=== PATIENT | female | born 1990 | race Caucasian/White ===

== ENCOUNTER 2017-06-09 12:02 | Emergency (ER) | payer OTHER ==
[2017-06-09 12:15] VITALS: BP 109/75; PULSE 106; TEMP 97.7; BMI 23.8
--- NOTE | 2017-06-09 12:47 | PDOC ---
History of Present Illness - General Chief Complaint: RX Refill Stated Complaint: RX REFILL Time Seen by Provider: 06/09/17 12:23 History Source: Patient Exam Limitations: No Limitations - History of Present Illness Initial Comments: 06/09/17 12:42 This is a 26yo woman with PMHx tricuspid valve removal 05/13 s/p vegetated valve who presents to have her metoprolol, lasix and potassium refilled. She recently moved to [place] from [place] where her procedure was done. At this time, she is in the process of obtaining medicaid in [facility]. She has appointment with angiographer on 06/09 to resume care here. She denies fevers, chest pain, SOB, nausea, vomiting, swelling, bloating or decrease in exercise tolerance. 06/09/17 12:50 06/09/17 12:51 Timing/Duration: other Past History - Travel Traveled outside of the country in the last 30 days: No Close contact w/someone who was outside of country & ill: No - Past Medical History Allergies/Adverse Reactions: Allergies Allergy/AdvReac Type Severity Reaction Status Date / Time No Known Allergies Allergy Verified 06/09/17 12:05 Home Medications: Ambulatory Orders Furosemide [Lasix -] 40 mg PO DAILY #30 tab 06/09/17 Metoprolol Tartrate 25 mg PO BID #60 tab 06/09/17 Pot Chloride/Pot Bicarb/Cit AC [Potassium Cl 25 Meq Tab Eff] 25 meq PO DAILY # 30 tab 06/09/17 Anemia: No Asthma: No Cancer: No Cardiac Disorders: Yes (vegetative tricuspid valve) Hx Myocardial Infarction: No CVA: No COPD: No CHF: Yes DVT: No Dementia: No Diabetes: No Dialysis: No GI Disorders: No Disorders: No HTN: No Hypercholesterolemia: No HIV: No Kidney Stones: No Liver Disease: No Psychiatric Problems: No Suicide Attempt (Hx): No Seizures: No Thyroid Disease: No Lung CA: No - Surgical History Abdominal Surgery: No Appendectomy: No Cardiac Surgery: Yes (tricuspid valve removal) Cholecystectomy: No Gastric Stapling: No GI Surgery: No Lung Surgery: No Neurologic Surgery: No Orthopedic Surgery: No - Psycho/Social/Smoking Cessation Hx Suicidal Ideation: No Smoking History: Current every day smoker Years of Tobacco Use: 11 Have you smoked in the past 12 months: Yes Number of Cigarettes Smoked Daily: 3 Information on smoking cessation initiated: No Drug/Substance Use Hx: Yes Substance Use Type: Heroin (IV) Hx Substance Use Treatment: Yes Patient Lives Alone: No Lives with/in: parents Review of Systems - Review of Systems Able to Perform ROS?: Yes Is the patient limited Croatian proficient: No Constitutional: No: Symptoms Reported HEENTM: No: Symptoms Reported Respiratory: No: Symptoms reported Cardiac (ROS): No: Symptoms Reported ABD/GI: No: Symptoms Reported : No: Symptoms Reported Musculoskeletal: No: Symptoms Reported Integumentary: No: Symptoms Reported Neurological: No: Symptoms reported Endocrine: No: Symptoms Reported Hematologic/Lymphatic: No: Symptoms Reported All Other Systems: Reviewed and Negative *Physical Exam - Vital Signs Last Vital Signs Temp Pulse Resp BP Pulse Ox 97.7 F 106 H 18 109/75 100 06/09/17 12:06 06/09/17 12:06 06/09/17 12:06 06/09/17 12:06/09/17 12:06 - Physical Exam General Appearance: Yes: Appropriately Dressed. No: Apparent Distress HEENT: positive: SANDRA, Normal ENT Inspection, Normal Voice, Pharynx Normal Neck: positive: Trachea midline, Supple Respiratory/Chest: positive: Lungs Clear, Normal Breath Sounds. negative: Respiratory Distress Cardiovascular: positive: Regular Rhythm, Regular Rate, S1, S2. negative: Edema , Murmur Gastrointestinal/Abdominal: positive: Normal Bowel Sounds, Soft. negative: Tender, Organomegaly Musculoskeletal: positive: Normal Inspection. negative: CVA Tenderness Extremity: positive: Normal Capillary Refill, Normal Inspection, Normal Range of Motion Integumentary: positive: Normal Color, Dry, Warm Neurologic: positive: mother tester II-XII NML intact, Fully Oriented, Alert, Motor Strength 5/5 Medical Decision Making - Medical Decision Making 06/09/17 12:50 This is a 26yo woman with PMHx tricuspid valve removal 05/13 s/p vegetated valve who presents to have her metoprolol, lasix and potassium refilled. She recently moved to [place] from [place] where her procedure was done. At this time, she is in the process of obtaining medicaid in [facility]. She has appointment with angiographer on 06/09 to resume care here. She denies fevers, chest pain, SOB, nausea, vomiting, swelling, bloating or decrease in exercise tolerance. Counseling given regarding s/s heart failure, smoking cessation, and drug use. Pt agrees to see PMD during the first week of June when insurance is active. *DC/Admit/Observation/Transfer Diagnosis at time of Disposition: Prescription for medication not provided at discharge - Discharge Dispostion Disposition: HOME Condition at time of disposition: Stable Admit: No - Prescriptions Prescriptions: Furosemide [Lasix -] 40 mg PO DAILY #30 tab Metoprolol Tartrate 25 mg PO BID #60 tab Pot Chloride/Pot Bicarb/Cit AC [Potassium Cl 25 Meq Tab Eff] 25 meq PO DAILY # 30 tab - Referrals Referrals: Juan Carlos Marrero MD [Staff Physician] - - Patient Instructions Printed Discharge Instructions: How to Keep Track of Your Weight When You Have Heart Failure, Smoking Cessation
== END 2017-06-09 13:03 | disposition home or self-care (01) ==
LOC: JERFT 12:02
DX: Z76.0 Encounter for issue of repeat prescription (principal); I33.0 Acute and subacute infective endocarditis
CPT/HCPCS: 99281-25

== ENCOUNTER 2017-07-17 09:38 | Emergency (ER) | payer OTHER ==
[2017-07-17 09:47] VITALS: TEMP 97.8; BMI 23.8
--- NOTE | 2017-07-17 10:37 | PDOC ---
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 She denies any pain around her surgical scars and signs of infection. She reports some increasing SOB with exertion and intermittent chest pain that her commercial collections specialist Dr. Fields is aware of. She is scheduled for tricuspid valve placement in 3 weeks at [facility]. She denies using heroine since February 2017. She states that her heart rate is normally a little high in the 110s. 07/17/17 10:50 07/17/17 10:56 07/17/17 11:28 Past History - Past Medical History Allergies/Adverse Reactions: Allergies Allergy/AdvReac Type Severity Reaction Status Date / Time No Known Allergies Allergy Verified 07/17/17 09:39 Home Medications: Ambulatory Orders Furosemide [Lasix -] 40 mg PO DAILY #30 tab 06/09/17 Metoprolol Tartrate 25 mg PO BID #60 tab 06/09/17 Pot Chloride/Pot Bicarb/Cit AC [Potassium Cl 25 Meq Tab Eff] 20 meq PO DAILY Anemia: No Asthma: No Cancer: No Cardiac Disorders: Yes (vegetative tricuspid valve) CVA: No COPD: No CHF: Yes DVT: No Dementia: No Diabetes: No Dialysis: No GI Disorders: No Disorders: No HTN: No Hypercholesterolemia: No HIV: No Kidney Stones: No Liver Disease: No Psychiatric Problems: No Suicide Attempt (Hx): No Seizures: No Thyroid Disease: No Lung CA: No Other medical history: hx of iv drug abuse Comment:: 07/17/17 10:52 PMH: none other than stated above PSH: none other than stated above Meds: metoprolol, furosemide, potassium chloride Allergies: NKDA FAm Hx: DM Social Hx: denies toxic habits since February - Surgical History Abdominal Surgery: No Appendectomy: No Cardiac Surgery: Yes (tricuspid valve removal) Cholecystectomy: No Gastric Stapling: No GI Surgery: No Lung Surgery: No Neurologic Surgery: No Orthopedic Surgery: No - Psycho/Social/Smoking Cessation Hx Anxiety: No Suicidal Ideation: No Smoking History: Former smoker Years of Tobacco Use: 11 Have you smoked in the past 12 months: Yes Number of Cigarettes Smoked Daily: 3 Information on smoking cessation initiated: No Hx Alcohol Use: No Drug/Substance Use Hx: Yes (hx of iv drug abuse) Substance Use Type: Heroin Hx Substance Use Treatment: Yes Review of Systems - Review of Systems Comments:: 07/17/17 10:53 GENERAL: No fever, chills, night sweats, or weakness. HEAD, EYES, EARS, NOSE AND THROAT: No change in vision, ear pain, or sore throat CARDIOVASCULAR: + chest pain, no palpitations RESPIRATORY: No cough, wheezing, or hemoptysis. GASTROINTESTINAL: No nausea, vomiting, diarrhea, constipation, or blood in the stool. GENITOURINARY: No dysuria, frequency, or urgency MUSCULOSKELETAL: No joint or muscle swelling or pain. SKIN: No rashes or pruritis ENDOCRINE: No increased thirst. No abnormal weight change NEUROLOGIC: + headache, no dizziness, loss of consciousness, or change in strength/sensation. 07/17/17 11:07 *Physical Exam - Vital Signs Last Vital Signs Temp Pulse Resp BP Pulse Ox 97.8 F 121 H 18 111/76 100 07/17/17 09:42 07/17/17 09:42 07/17/17 09:42 07/17/17 09:42 07/17/17 09:42 - Physical Exam Comments: 07/17/17 10:54 GENERAL: Awake, alert, and fully oriented, in no acute distress HEAD: normocephalic, atraumatic HEENT: PERRLA, EOMI, sclera anicteric, conjunctiva clear, hearing grossly normal , nares patent, oropharynx clear without exudate, moist mucosa NECK: Normal ROM, supple, no lymphadenopathy, JVD, or masses HEART: tachycardic, Regular rhythm, normal S1 and S2, no murmurs, rubs or gallops, peripheral pulses normal and equal bilaterally. LUNGS: CTAB, no wheezing, no rales ABDOMEN: 3 surgical scars present below right breast, no erythema, no induration , not warm to touch, healing well. Soft, nontender, nondistended, normoactive bowel sounds. No guarding, no rebound. No masses EXTREMITIES: Normal range of motion, no edema. SKIN: Warm, dry, no rashes. NEUROLOGICAL: Cranial nerves II through XII grossly intact. 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 Exam shows no signs of infection around surgical site. EKG: left atrial enlargement, normal sinus rhythm Spoke with Dr. Jony Fields (pt's commercial collections specialist), informed him of suture removal and tachycardia with EKG findings. He recommended that as long as there is no evidence of withdrawal, she can be discharged home with f/u with him this week 07/17/17 10:57 07/17/17 11:07 07/17/17 11:28 *DC/Admit/Observation/Transfer Diagnosis at time of Disposition: Extruding suture Qualifiers: Encounter type: initial encounter Qualified Code(s): T81.30XA - Disruption of wound, unspecified, initial encounter - Discharge Dispostion Admit: No - Patient Instructions Additional Instructions: Your surgical scars appear to be well healing without signs of infection. Your heart rate is elevated, and your EKG shows normal sinus rhythm with signs of left atrial enlargement. Please follow up with Dr. Fields in one week. If you develop any worsening or concerning symptoms of shortness of breath or chest pain, fevers or chills, return to the ED. - Attestations Physician Attestion: 07/17/17 11:34 I, Dr. Hussain Kim, attest that this document has been prepared under my direction and personally reviewed by me in its entirety. I further attest, that it accurately reflects all work, treatment, procedures and medical decision -making performed by me.
--- NOTE | 2017-07-17 10:56 | PDOC ---
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 Saw blue material in her scar yesterday which she pulled and removed a 8cm piece of suture. Scheduled to get a new TC valve at [facility] in 3 weeks. Feels well otherwise, denies current CP, SOB, N/V/ D, abd pain, fevers, chills. Last used heroine 02/2017. Pt tachycardic to 120 on arrival, 110 on my evaluation, reports her baseline heart rate is usually around 110. - Physicial Exam PE: 07/17/17 10:56 GENERAL: Awake, alert, and fully oriented, in no acute distress. Well appearing , pleasant HEAD: No signs of trauma EYES: PERRLA, EOMI, sclera anicteric, conjunctiva clear ENT: Auricles normal inspection, hearing grossly normal, nares patent, oropharynx clear without exudates. Moist mucosa NECK: Normal ROM, supple, no lymphadenopathy, JVD, or masses LUNGS: Breath sounds equal, clear to auscultation bilaterally. No wheezes, and no crackles HEART: tachycardic to 110, regular, normal S1 and S2, no murmurs, rubs or gallops ABDOMEN: Soft, nontender, normoactive bowel sounds. No guarding, no rebound. No masses EXTREMITIES: Normal range of motion, no edema. No clubbing or cyanosis. No cords, erythema, or tenderness NEUROLOGICAL: Normal speech, cranial nerves intact, negative pronator drift, 5/ 5 strength in all 4 extremities, normal sensation to light touch in all 4 extremities, normal cerebellar exam, normal gait, normal reflexes and tone SKIN: Warm, Dry, normal turgor, no rashes or lesions noted. Lateral to R breast , 3 scars, 1 superior scar 5cm and 2 inferior 1 cm scars all clean/dry and intact with no suture material. - Medical Decision Making 07/17/17 10:57 26-year-old female history of tricuspid valve removal in March 2017 presents after removing a long piece of suture from her scar. Patient is currently asymptomatic. Exam with scars that are all clean, dry, and intact. Patient also tachycardic to 120 in triage and 110 on my evaluation but reports this is her baseline. She does not have any symptoms such as fevers, chills, pain, chest pain, shortness of breath that will cause her to be tachycardic. Will call Dr. Fields to discuss the case and also confirm that her heart rate is typically in this range. -call Dr. Fields -dispo 07/17/17 11:33 Dr. Fields was called, said that with regards to suture coming out, as long as scars do not appear infected that we do not need to do any further work up. With regards to her tachycardia, she does tend to run a bit tachycardic to low 100s and is on metoprolol. He states that so long as she is in sinus, and regular, she can be discharged to follow up in clinic with him. Twelve-lead EKG was performed in triage and reviewed by me. Sinus tachycardia, rate 114 normal axis and intervals, no ST changes I discussed the physical exam findings, ancillary test results and final diagnoses with the patient. HR down to 108 upon DC. I answered all of the patient's questions. The patient was satisfied with the care received and felt comfortable with the discharge plan and treatment plan. The patient will call their primary care physician within 24 hours to arrange follow-up and will return to the Emergency Department with any new, persistent or worsening symptoms.
[2017-07-17 11:44] VITALS: BP 108/75; PULSE 108
--- NOTE | 2017-07-20 16:19 | EKG ---
Test Reason : Blood Pressure : / mmHG Vent. Rate : 114 BPM Atrial Rate : 114 BPM P-R Int : 136 ms QRS Dur : 086 ms QT Int : 354 ms P-R-T Axes : 058 013 039 degrees QTc Int : 487 ms SINUS TACHYCARDIA LEFT ATRIAL ENLARGEMENT CANNOT RULE OUT INFERIOR INFARCT , AGE UNDETERMINED ABNORMAL ECG NO PREVIOUS ECGS AVAILABLE Confirmed by CLARA HUANG MD ([id number]) on 07/20/2017 4:18:51 PM Referred By: Confirmed By:CLARA HUANG MD
== END 2017-07-17 11:44 | disposition home or self-care (01) ==
LOC: JER 09:38
DX: T81.31XA Disruption of external operation (surgical) wound, not elsewhere classified, initial encounter (principal); I50.9 Heart failure, unspecified; I07.8 Other rheumatic tricuspid valve diseases; F11.10 Opioid abuse, uncomplicated
CPT/HCPCS: 93005; 93010; 99281-25

== ENCOUNTER 2017-11-29 16:57 | Emergency (ER) | payer OTHER ==
[2017-11-29 17:38] VITALS: BP 142/82; PULSE 113; TEMP 98.3; BMI 26.5
--- NOTE | 2017-11-29 17:39 | PDOC ---
Rapid Medical Evaluation Time Seen by Provider: 11/29/17 17:34 Medical Evaluation: Allergies Allergy/AdvReac Type Severity Reaction Status Date / Time No Known Allergies Allergy Verified 07/17/17 09:39 I have performed a brief in-person evaluation of this patient. The patient presents with a chief complaint of: dry cough x 2 weeks, left knee pain x 1 week Pertinent physical exam findings: persistent dry cough I have ordered the following: hcg The patient will proceed to the ED for further evaluation.
--- NOTE | 2017-11-29 18:11 | PDOC ---
History of Present Illness - General Chief Complaint: Cold Symptoms Stated Complaint: COUGH Time Seen by Provider: 11/29/17 17:34 - History of Present Illness Initial Comments: 11/29/17 18:06 CHIEF COMPLAINT: cough x 2 weeks, L knee pain HISTORY OF PRESENT ILLNESS: 27 yo F with hx of endocarditis, s/p aortic valve replacement (on Coumadin) and left knee arthroscopy, presents to fast track with dry cough x 2 weeks and left knee pain. Patient states "every once in a while I might sneeze a little or have a little runny nose, but most of the time it's just dry coughing." Patient denies any fever, chills, nausea, vomiting, diarrhea. PAST MEDICAL HISTORY: Denies past medical history FAMILY HISTORY: Denies SOCIAL HISTORY: Denies tobacco, alcohol, illicit drug use. SURGICAL HISTORY: Denies ALLERGIES: No known drug allergies REVIEW OF SYSTEMS General/Constitutional: Denies fever or chills. HEENT: Denies change in vision. Denies ear pain or discharge. Denies sore throat. Cardiovascular: Denies chest pain or shortness of breath. Respiratory: Dry cough x 1 week. Denies wheezing, or hemoptysis. Gastrointestinal: Denies nausea, vomiting, diarrhea or constipation. Denies rectal bleeding. Genitourinary: Denies dysuria, frequency, or change in urination. Musculoskeletal: L knee pain x 1 week, worse with cold weather and movement. Denies swelling, erythema, calf pain. Skin and breasts: Denies rash or easy bruising. PHYSICAL EXAM General Appearance: Well-appearing, appropriately dressed. No apparent distress. HEENT: EOMI, PERRLA. No conjunctival pallor. No photophobia, scleral icterus. Respiratory/Chest: Lungs CTAB. No shortness of breath, chest tenderness, respiratory distress, accessory muscle use. No crackles, rales, rhonchi, stridor , wheezing, dullness Cardiovascular: RRR. S1, S2. Gastrointestinal/Abdominal: Normal bowel sounds. Abdomen soft, non-distended. No tenderness or rebound tenderness. No organomegaly, pulsatile mass, guarding , hernia, hepatomegaly, splenomegaly. Musculoskeletal/Extremities: Normal inspection. FROM of all extremities, normal capillary refill. Pelvis Stable. No CVA tenderness. No tenderness to extremities, pedal edema, swelling, erythema or deformity. Integumentary: Appropriate color, dry, warm. No cyanosis, erythema, jaundice or rash Neurologic: shotgun shell assembly machine adjuster II-XII intact. Fully oriented, alert. Appropriate mood/affect. Motor strength 5/5. No appreciable EOM palsy, facial droop or sensory deficit. Past History - Past Medical History Allergies/Adverse Reactions: Allergies Allergy/AdvReac Type Severity Reaction Status Date / Time No Known Allergies Allergy Verified 11/29/17 17:38 Home Medications: Ambulatory Orders Azithromycin [Zithromax 250mg Tablets -] 250 mg PO UTDICT #6 tab 11/29/17 Benzonatate [Tessalon Pearls -] 100 mg PO TID PRN #21 capsule 11/29/17 Celecoxib [Celebrex] 100 mg PO BID PRN #10 capsule 11/29/17 Warfarin Na [Coumadin] 7.5 mg PO ASDIR 11/29/17 Anemia: No Asthma: No Cancer: No Cardiac Disorders: Yes (vegetative tricuspid valve) CVA: No COPD: No CHF: Yes DVT: No Dementia: No Diabetes: No Dialysis: No GI Disorders: No Disorders: No HTN: No Hypercholesterolemia: No Kidney Stones: No Liver Disease: No Psychiatric Problems: No Seizures: No Thyroid Disease: No Lung CA: No - Surgical History Abdominal Surgery: No Appendectomy: No Cardiac Surgery: Yes (tricuspid valve removal) Cholecystectomy: No Gastric Stapling: No GI Surgery: No Lung Surgery: No Neurologic Surgery: No Orthopedic Surgery: No - Suicide/Smoking/Psychosocial Hx Smoking History: Former smoker Years of Tobacco Use: 11 Have you smoked in the past 12 months: Yes Number of Cigarettes Smoked Daily: 3 If you are a former smoker, when did you quit?: 5 MO AGO Information on smoking cessation initiated: No Hx Alcohol Use: No Drug/Substance Use Hx: No Substance Use Type: None Hx Substance Use Treatment: Yes *Physical Exam - Vital Signs Last Vital Signs Temp Pulse Resp BP Pulse Ox 98.3 F 113 H 20 142/82 98 11/29/17 17:35 11/29/17 17:35 11/29/17 17:35 11/29/17 17:35 11/29/17 17:35 Medical Decision Making - Medical Decision Making 11/29/17 18:10 27 yo F with hx of endocarditis, s/p aortic valve replacement and left knee arthroscopy, presents to fast track with dry cough x 2 weeks and left knee pain. -urine preg urine preg negative -60 mg Toradol IM Given duration of symptoms, will rx antibiotics. -Z pack sent to pharm Advised patient to take medication as prescribed and follow up with PCP and orthopedics within the next 3-4 days. Advised patient of signs and symptoms for return to ED. Patient verbalized understanding and agrees to plan. *DC/Admit/Observation/Transfer Diagnosis at time of Disposition: Bronchitis Left knee pain Qualifiers: Chronicity: acute Qualified Code(s): M25.562 - Pain in left knee - Discharge Dispostion Disposition: HOME Condition at time of disposition: Stable Admit: No - Prescriptions Prescriptions: Azithromycin [Zithromax 250mg Tablets -] 250 mg PO UTDICT #6 tab Benzonatate [Tessalon Pearls -] 100 mg PO TID PRN #21 capsule PRN Reason: Cough Celecoxib [Celebrex] 100 mg PO BID PRN #10 capsule PRN Reason: Pain - Referrals Referrals: Jorge Valdez MD [Staff Physician] - - Patient Instructions Printed Discharge Instructions: DI for Acute Bronchitis, DI for Knee Pain Additional Instructions: Please take medications as prescribed. As discussed, you MUST follow up with orthopedics within the next 2-3 days for further evaluation of your knee pain. If you develop any pain to your calf, difficulty breathing, palpitations, shortness of breath, or any new or worsening symptoms, please return to the ER. - Post Discharge Activity
== END 2017-11-29 18:25 | disposition home or self-care (01) ==
LOC: JERFT 16:57
DX: J40 Bronchitis, not specified as acute or chronic (principal); M25.562 Pain in left knee; Z95.2 Presence of prosthetic heart valve; Z79.01 Long term (current) use of anticoagulants
CPT/HCPCS: 84703; 99281-25

== ENCOUNTER 2018-11-22 08:42 | Emergency (ER) | payer OTHER ==
[2018-11-22 09:11] VITALS: BP 109/74; PULSE 88; TEMP 97.9; BMI 28.3
[2018-11-22] MEDS ORDERED: ALBUTEROL SO4 2.5/IPRATROPIUM 0.5 INH SOL 3 ML VIAL.NEB. NEB ONE ×2 (09:28→09:29)
--- NOTE | 2018-11-22 09:53 | PDOC ---
History of Present Illness - General Chief Complaint: Respiratory Stated Complaint: SORE THROAT Time Seen by Provider: 11/22/18 09:18 History Source: Patient Exam Limitations: No Limitations - History of Present Illness Initial Comments: 11/22/18 09:30 28 yr female no pmhx with cough sneezing nasal congestion for 3 days no fever no vomiting, non smoker. Severity: reports: mild Possible Cause: Yes: no prior episodes Past History - Past Medical History Allergies/Adverse Reactions: Allergies Allergy/AdvReac Type Severity Reaction Status Date / Time No Known Allergies Allergy Verified 11/22/18 09:07 Home Medications: Ambulatory Orders Azithromycin [Zithromax 250mg Tablets -] 250 mg PO UTDICT #6 tab 11/29/17 Benzonatate [Tessalon Pearls -] 100 mg PO TID PRN #21 capsule 11/29/17 Celecoxib [Celebrex] 100 mg PO BID PRN #10 capsule 11/29/17 Warfarin Na [Coumadin] 7.5 mg PO ASDIR 11/29/17 Albuterol Sulfate Inhaler - [Ventolin HFA Inhaler -] 1 - 2 inh PO QID #1 inhaler 11/22/18 Benzonatate [Tessalon Pearls -] 200 mg PO TID #42 cap 11/22/18 Anemia: No Asthma: No Cancer: No Cardiac Disorders: Yes (vegetative tricuspid valve) CVA: No COPD: No CHF: Yes DVT: No Dementia: No Diabetes: No Dialysis: No GI Disorders: No Disorders: No HTN: No Hypercholesterolemia: No Kidney Stones: No Liver Disease: No Psychiatric Problems: No Seizures: No Thyroid Disease: No Lung CA: No - Surgical History Abdominal Surgery: No Appendectomy: No Cardiac Surgery: Yes (tricuspid valve removal) Cholecystectomy: No Gastric Stapling: No GI Surgery: No Lung Surgery: No Neurologic Surgery: No Orthopedic Surgery: No - Suicide/Smoking/Psychosocial Hx Smoking History: Never smoked Years of Tobacco Use: 11 Have you smoked in the past 12 months: Yes Number of Cigarettes Smoked Daily: 3 If you are a former smoker, when did you quit?: 5 MO AGO Hx Alcohol Use: No Drug/Substance Use Hx: No Substance Use Type: None Hx Substance Use Treatment: Yes Review of Systems - Review of Systems Able to Perform ROS?: Yes Is the patient limited Bengali proficient: No Respiratory: Yes: Cough *Physical Exam - Vital Signs Last Vital Signs Temp Pulse Resp BP Pulse Ox 97.9 F 88 18 109/74 99 11/22/18 09:07 11/22/18 09:07 11/22/18 09:07 11/22/18 09:07 11/22/18 09:07 - Physical Exam General Appearance: Yes: Nourished, Appropriately Dressed HEENT: positive: EOMI, SANDRA Respiratory/Chest: positive: Rhonchi Cardiovascular: positive: Regular Rhythm, Regular Rate Moderate Sedation - Procedure Monitoring Vital Signs: Procedure Monitoring Vital Signs Temperature 97.9 F 11/22/18 09:07 Pulse Rate 88 11/22/18 09:07 Respiratory Rate 18 11/22/18 09:07 Blood Pressure 109/74 11/22/18 09:07 O2 Sat by Pulse Oximetry (%) 99 11/22/18 09:07 Medical Decision Making - Medical Decision Making 11/22/18 15:56 cc: cough , no wheezing no fever nasal congestion and drainage will give duoneb now negative strep dc home viral bronchitis *DC/Admit/Observation/Transfer Diagnosis at time of Disposition: Bronchitis - Discharge Dispostion Disposition: HOME Condition at time of disposition: Fair - Prescriptions Prescriptions: Albuterol Sulfate Inhaler - [Ventolin HFA Inhaler -] 1 - 2 inh PO QID #1 inhaler Benzonatate [Tessalon Pearls -] 200 mg PO TID #42 cap - Referrals - Patient Instructions Printed Discharge Instructions: DI for Acute Bronchitis Additional Instructions: drink at least 2 liters of water a day take tessalon perles as directed for cough use the albuterol inhaler as directed for 4-5 days take an over the counter antihistamine such as Claritin D or Christina D to help with sneezing, nasal discharge and congestion follow with your primary care in 3-4 days Return to ER for any worsening symptoms - Post Discharge Activity
== END 2018-11-22 10:01 | disposition home or self-care (01) ==
LOC: JERFT 08:42
PROC: 3E0F7GC Introduction of Other Therapeutic Substance into Respiratory Tract, Via Natural or Artificial Opening (ICD-10-PCS; principal; 2018-11-22)
DX: J40 Bronchitis, not specified as acute or chronic (principal)
CPT/HCPCS: 87070; 87880; 99281-25

== ENCOUNTER 2020-01-07 09:59 | Emergency (ER) | payer OTHER ==
[2020-01-07 10:06] VITALS: BP 98/64; PULSE 103; TEMP 98.6; BMI 25.2
--- NOTE | 2020-01-07 10:31 | PDOC ---
History of Present Illness - General Chief Complaint: Pain Stated Complaint: HEADACHES Time Seen by Provider: 01/07/20 10:07 History Source: Patient - History of Present Illness Timing/Duration: reports: other Past History - Past Medical History Allergies/Adverse Reactions: Allergies Allergy/AdvReac Type Severity Reaction Status Date / Time No Known Allergies Allergy Verified 01/07/20 10:04 Home Medications: Ambulatory Orders Azithromycin [Zithromax 250mg Tablets -] 250 mg PO UTDICT #6 tab 11/29/17 Benzonatate [Tessalon Pearls -] 100 mg PO TID PRN #21 capsule 11/29/17 Celecoxib [Celebrex] 100 mg PO BID PRN #10 capsule 11/29/17 Warfarin Na [Coumadin] 7.5 mg PO ASDIR 11/29/17 Albuterol Sulfate Inhaler - [Ventolin HFA Inhaler -] 1 - 2 inh PO QID #1 inhaler 11/22/18 Benzonatate [Tessalon Pearls -] 200 mg PO TID #42 cap 11/22/18 Anemia: No Asthma: No Cancer: No 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) CVA: No COPD: No CHF: Yes DVT: No Dementia: No Diabetes: No Dialysis: No GI Disorders: No Disorders: No HTN: No Hypercholesterolemia: No Kidney Stones: No Liver Disease: No Psychiatric Problems: No Seizures: No Thyroid Disease: No Lung CA: No - Surgical History Abdominal Surgery: No Appendectomy: No Cardiac Surgery: Yes (tricuspid valve removal) Cholecystectomy: No Gastric Stapling: No GI Surgery: No Lung Surgery: No Neurologic Surgery: No Orthopedic Surgery: No - Psycho Social/Smoking Cessation Hx Smoking History: Never smoked Years of Tobacco Use: 11 Have you smoked in the past 12 months: No Number of Cigarettes Smoked Daily: 3 If you are a former smoker, when did you quit?: 5 MO AGO Information on smoking cessation initiated: No Hx Alcohol Use: No Drug/Substance Use Hx: No Substance Use Type: None Hx Substance Use Treatment: Yes Review of Systems - Review of Systems Constitutional: Yes: Malaise. No: Chills, Fever HEENTM: Yes: Nose Congestion. No: Ear Pain, Throat Pain Respiratory: No: Cough, Shortness of Breath *Physical Exam - Vital Signs Last Vital Signs Temp Pulse Resp BP Pulse Ox 98.6 F 103 H 20 98/64 95 01/07/20 10:04 01/07/20 10:04 01/07/20 10:04 01/07/20 10:04 01/07/20 10:04 - Physical Exam General Appearance: Yes: Appropriately Dressed. No: Apparent Distress HEENT: positive: Normal ENT Inspection, Normal Voice, TMs Normal, Pharynx Normal. negative: Scleral Icterus (R), Scleral Icterus (L) Neck: positive: Supple. negative: Lymphadenopathy (R), Lymphadenopathy (L) Respiratory/Chest: positive: Lungs Clear, Normal Breath Sounds. negative: Respiratory Distress Cardiovascular: positive: Regular Rate, S1, S2 Integumentary: positive: Dry, Warm Neurologic: positive: Fully Oriented, Alert, Normal Mood/Affect Medical Decision Making - Medical Decision Making 01/07/20 10:28 29-year-old female, no significant history, here with malaise with headache and nasal congestion x several days. No rhinorrhea, body aches fever or chills see exam Viral illness Exam unremarkable -Dc w/ supportive tx Discharge - Discharge Information Problems reviewed: Yes Clinical Impression/Diagnosis: Viral syndrome Condition: Good Disposition: HOME - Follow up/Referral Referrals: Randolph Burger [Primary Care Provider] - - Patient Discharge Instructions Patient Printed Discharge Instructions: DI for Viral Syndrome - Post Discharge Activity Work/Back to School Note: Back to Work
== END 2020-01-07 10:35 | disposition home or self-care (01) ==
LOC: JERFT 09:59
DX: B34.9 Viral infection, unspecified (principal); Z95.2 Presence of prosthetic heart valve; Z79.01 Long term (current) use of anticoagulants; Z86.79 Personal history of other diseases of the circulatory system
CPT/HCPCS: 99282-25